=== PATIENT | female | born 1985 | race American Indian/Alaskan Native ===

== ENCOUNTER 2019-05-09 21:20 | Emergency (ER) | payer MEDICAID, OTHER ==
[2019-05-09] MEDS ORDERED: Ketorolac 60 MG/2 ML SDV IM ONE (22:03)
[2019-05-09] MEDS ORDERED: Bacitracin Oint 1 GM U/D Packet TOP ONE ×2 (22:03→23:14)
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
--- NOTE | 2019-05-09 23:11 | CRLCR ---
Indication: Right shoulder pain. Technique: Right shoulder AP, Y-view, axillary, and Grashey 4 views. Comparison: None. Findings: Bones: Alignment is normal. No fractures or bone lesions. Joint spaces: Unremarkable. Joint spaces are preserved. No significant degenerative changes. Soft tissues: Unremarkable. Impression: : Normal right shoulder series. Dictated by Carson Langley MD @ May 09 2019 11:09PM Signed by Dr. Carson Langley @ May 09 2019 11:10PM
== END 2019-05-09 23:23 | disposition home or self-care (01) ==
LOC: JP.ED 21:20
DX: S40.011A Contusion of right shoulder, initial encounter (principal); S00.81XA Abrasion of other part of head, initial encounter; L08.9 Local infection of the skin and subcutaneous tissue, unspecified; F17.210 Nicotine dependence, cigarettes, uncomplicated; Z88.2 Allergy status to sulfonamides; W19.XXXA Unspecified fall, initial encounter
CPT/HCPCS: 73030; 96372; 99283; J1885